=== PATIENT | female | born 1995 | race Caucasian/White ===

== ENCOUNTER 2017-05-12 09:17 | Emergency (ER) | payer BC, OTHER ==
[~2017-05-12] VITALS: Ht 162.6 cm; Wt 113.4 kg
[~2017-05-12 09:17] MED LIST: MINO45TA
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
[2017-05-12 11:00] VITALS: BP 118/84
[2017-05-12] MEDS ORDERED: ACETAMINOPHEN 500 MG TAB PO ONE (11:10)
== END 2017-05-12 11:36 | disposition home or self-care (01) ==
LOC: ER 09:25
DX: S06.0X0A Concussion without loss of consciousness, initial encounter (principal); S16.1XXA Strain of muscle, fascia and tendon at neck level, initial encounter
CPT/HCPCS: 70450; 72125; 99283

== ENCOUNTER → 2017-07-04 | Outpatient (CLI) | payer BC, OTHER ==
--- NOTE | 2017-07-04 09:54 | RADIOLOGY IMAGING REPORT ---
FACILITY: [facility] - [place] PATIENT NAME: Bárbara Ruiz : 1995 MR: [id number] V: [id number] EXAM DATE: ORDERING PHYSICIAN: LUCIE BENNETT TECHNOLOGIST: Location: [facility] - [place] Patient: Bárbara Ruiz : 1995 Visit/Account:[id number] Date of Sevice: 07/04/2017 GALLBLADDER HISTORY: Acid reflux, sharp right upper quadrant pain COMPARISON: None. FINDINGS: Gallbladder: Unremarkable; no stones or sludge. Liver: Hepatomegaly with increased echogenicity throughout liver which can be seen with fatty infiltr ation or other infiltrative process Common duct: Normal, 2.2 mm diameter. Pancreas: Partially obscured by bowel, visualized aspects unremarkable. Right kidney: Resistive index 0.57. No evidence of right hydronephrosis. Right kidney measures 9.5 cm in length Upper abdominal aorta and IVC: Patent. Ascites: None visualized. IMPRESSION: Hepatomegaly with increased echogenicity throughout liver which can be seen with fatty infiltration o r other infiltrative process Report Dictated By: Audrey Tijerina MD at 07/04/2017 9:47 AM Report E-Signed By: Audrey Tijerina MD at 07/04/2017 9:49 AM WSN:[email or web address]
== END ==
LOC: US 03:53
PROVIDERS: ATTEND Obstetrics & Gynecology
DX: K76.0 Fatty (change of) liver, not elsewhere classified (principal)
CPT/HCPCS: 76705

== ENCOUNTER 2017-07-24 00:35 | Day surgery (SDC) | payer BC ==
[~2017-07-24] VITALS: Ht 160 cm; Wt 115.7 kg
[~2017-07-24 00:35] MED LIST changes: +DEXL60CA6 PO
[2017-07-24] MEDS ORDERED: GLYCOPYRROLATE 0.2MG/ML 1 ML INJ IVP ONE (08:20)
[2017-07-24] MEDS ORDERED: LIDOCAINE MPF 1% 5 ML VIAL ONE (12:18)
[2017-07-24] MEDS ORDERED: PROPOFOL EMUL(*) 10MG/ML 20 ML 60 ML ONE (12:18)
[2017-07-24] MEDS ORDERED: ONDANSETRON 4 MG/2 ML VIAL ONE (13:12)
[2017-07-24] MEDS ORDERED: NORMOSOL R SOLN(*) 1000 ML BAG 1,000 ML IV PRN (13:15)
[2017-07-24] MEDS ORDERED: LIDOCAINE/SOD BICARB 8.4% SYR ID ONE (13:15)
[2017-07-24 13:30] VITALS: BP 130/86
[2017-07-24 15:32] VITALS: BP 89/59
[2017-07-24 15:46] VITALS: BP 103/70
[2017-07-24 16:06] VITALS: BP 103/76
[2017-07-24 16:19] VITALS: BP 113/81
[2017-07-24 16:20] VITALS: BP 106/82
== END 2017-07-24 16:35 | disposition home or self-care (01) ==
LOC: OR 00:35
PROVIDERS: ATTEND Internal Medicine Gastroenterology
DX: K44.9 Diaphragmatic hernia without obstruction or gangrene (principal); K20.9 Esophagitis, unspecified; K29.70 Gastritis, unspecified, without bleeding
CPT/HCPCS: 00811; 43239; 45380; 81025; 88305; 88313; 88344; J2001; J2405; J2704; J3490

== ENCOUNTER → 2018-03-02 | Outpatient (REF) | payer BC | LOC: ZZSENDIN 12:14 | PROVIDERS: ATTEND Family Medicine | DX: N39.0 Urinary tract infection, site not specified (principal); R11.2 Nausea with vomiting, unspecified | CPT/HCPCS: 81001 ==